=== PATIENT | female | born 1950 | race Caucasian/White ===

== ENCOUNTER 2016-06-27 12:44 | Outpatient (CLI) | payer MEDICARE, OTHER ==
--- NOTE | 2016-06-27 13:15 | XRay Report ---
Chest 2 views: Compared to 06/27/14. History: Wheezing. +PPD. Findings: Normal cardiomediastinal silhouette. Trachea is midline. No consolidation, pneumothorax or pleural effusion. Impression: No acute cardiopulmonary findings.
== END 2016-06-27 12:45 | disposition home or self-care (01) ==
LOC: XRAY 12:44
PROVIDERS: ATTEND Internal Medicine
DX: R76.11 Nonspecific reaction to tuberculin skin test without active tuberculosis (principal)
CPT/HCPCS: 71020